=== PATIENT | female | born 1990 | race Caucasian/White ===

== ENCOUNTER 2022-09-12 08:55 | Outpatient (CLI) | payer BC ==
[2022-09-12] MEDS ORDERED: Iopamidol 370 76% 100 ML VIAL ONE (09:00)
== END 2022-09-12 08:56 | disposition home or self-care (01) ==
LOC: NAV CT 08:55
PROVIDERS: ATTEND Family Medicine
DX: M79.89 Other specified soft tissue disorders (principal); R22.2 Localized swelling, mass and lump, trunk
CPT/HCPCS: 71270; Q9967